=== PATIENT | male | born 1945 | race Caucasian/White ===

== ENCOUNTER → 2018-08-05 | Outpatient (CLI) | payer OTHER ==
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
== END | disposition home or self-care (01) ==
LOC: RADMRIMAIN 12:31
PROVIDERS: ATTEND Nurse Practitioner Family
DX: G31.1 Senile degeneration of brain, not elsewhere classified (principal); I67.82 Cerebral ischemia; S09.90XD Unspecified injury of head, subsequent encounter
CPT/HCPCS: 70551

== ENCOUNTER 2022-05-29 09:34 | Inpatient (IN) | payer MEDICARE ==
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
[2022-05-29] MEDS ORDERED: NITROGLYCERIN SL TABS 0.4 MG TAB SUBLINGUAL PRN (10:01)
[2022-05-29] MEDS ORDERED: IV FLUID CONTINUATION 1,000 ML IV ONE (10:30)
[2022-05-29] MEDS ORDERED: LIDOCAINE 1% INJ 10MG/ML (30 ML VIAL-PF) SQ ONE (11:13)
--- NOTE | 2022-05-29 11:38 | P.EPPROC ---
- EP Procedure Note Electrophysiology Procedure Note: Transvenous temporary pacing procedure Indication for the procedure: Paroxysmal AV block with long pauses associated with presyncope and syncope, recurrent Patient was brought to the EP lab in a fasting state. Written informed consent was obtained prior to the procedure. The right groin was prepped and draped as a protocol. A 6-Azeri sheath was placed in the right femoral vein. Via this, a temporary pacing catheter was placed in the right ventricle. Thresholds were interrogated. Temporary pacing was performed through the rest of the procedure. At the end of the entire procedure, the TVP was removed. The sheath was removed and hemostasis was assured. Patient tolerated the procedure well without any acute complications. Procedure performed Transvenous temporary pacing Plan dual-chamber pacemaker in the next 48 hours
--- NOTE | 2022-05-29 11:38 | P.CRDCN ---
History of Present Illness Consult date: 05/29/22 Past Medical History Past Medical History: Diabetes Mellitus Additional Past Medical History / Comment(s): Cardiac Stent, (1, 8yrs), Heart murmur History of Any Multi-Drug Resistant Organisms: None Reported Past Surgical History: Heart Catheterization With Stent, Hernia Repair Past Psychological History: No Psychological Hx Reported Smoking Status: Current every day smoker Past Alcohol Use History: Occasional Past Drug Use History: None Reported Medications and Allergies Allergies Allergy/AdvReac Type Severity Reaction Status Date / Time meperidine [From Demerol] Allergy Severe Anaphylaxis Verified 05/29/22 10:00 Physical Exam Vitals: Vital Signs Pulse Resp BP Pulse Ox 05/29/22 09:47 86 18 116/93 97 Intake and Output 05/28/22 05/29/22 05/29/22 22:59 06:59 14:59 Other: Weight 64.864 kg Results Intake and Output 05/28/22 05/29/22 05/29/22 22:59 06:59 14:59 Other: Weight 64.864 kg Patient Weight 05/30/22 06:59 Weight 64.864 kg
[2022-05-29 12:04] LABS: Glucose,Whole Blood 190 mg/dL (70-110)
--- NOTE | 2022-05-29 12:51 | P.PCN ---
Preoperative Diagnosis: Patient underwent EP procedure under conscious sedation/moderate sedation, monitoring of the level of consciousness and physiologic parameters including but not limited to vital signs and oxygenation. Patient tolerated the procedure well without any acute complications. Start time: 1113 Stop time: 1129
[2022-05-29] MEDS ORDERED: NALOXONE 0.4 MG/ML 1 ML VIAL IV PRN (13:03)
[2022-05-29] MEDS ORDERED: CALCIUM CARBONATE 500 MG CHEWABLE PO PRN (13:03)
[2022-05-29] MEDS ORDERED: ONDANSETRON 4 MG/2 ML VIAL IVP PRN (13:03)
[2022-05-29] MEDS ORDERED: ALPRAZolam 0.25 MG TAB PO PRN (13:03)
[2022-05-29] MEDS ORDERED: MELATONIN 3 MG TABLET PO PRN (13:03)
[2022-05-29] MEDS ORDERED: ACETAMINOPHEN TAB 325 MG TAB PO PRN (13:03)
[2022-05-29] MEDS ORDERED: LACTULOSE 20 GM/30 ML CUP PO PRN (13:03)
[2022-05-29] MEDS ORDERED: DEXTROSE 50% SYRINGE 50 ML IVP PRN ×2 (13:05)
[2022-05-29] MEDS: NICOTINE 14MG/24HR PATCH TRANSDERM SCH (13:10)
[2022-05-29] MEDS: INSULIN ASPART (NovoLOG) 100 UNIT/ML VIAL SQ SCH ×2 (13:11→17:56)
--- NOTE | 2022-05-29 13:41 | XR ---
EXAMINATION TYPE: XR chest 1V portable DATE OF EXAM: 05/29/2022 COMPARISON: NONE HISTORY: Cough TECHNIQUE: Single frontal view of the chest is obtained. FINDINGS: There is no focal air space opacity, pleural effusion, or pneumothorax seen. The cardiac silhouette size is within normal limits. The osseous structures are intact. Arthropathy of the shou lders. Hyperinflation suggests COPD. Heart size normal. No overt failure. Likely appears to be looped along the lower margin of the cardiac silhouette. IMPRESSION: 1. COPD. Correlate for pulmonary fibrosis or interstitial pneumonitis. There is a metallic lead overl emmanuel the lower heart border . Correlate for positioning.
[2022-05-29 13:50] LABS: Basophils % (A) 0 %; Eosinophils % (A) 0 %; HCT 38.1 % (39.0-53.0); HGB 13.5 gm/dL (13.0-17.5); Lymphocytes # (A) 0.9 k/uL (1.0-4.8); Lymphocytes % (A) 15 %; MCH 37.4 pg (25.0-35.0); MCHC 35.4 g/dL (31.0-37.0); MCV 105.6 fL (80.0-100.0); Macrocytosis Slight; Mean Platelet Volume 8.1; Monocytes # (A) 0.3 k/uL (0-1.0); Monocytes % (A) 4 %; Neutrophils # (A) 4.8 k/uL (1.3-7.7); Neutrophils % (A) 79 %; Platelet Count 173 k/uL (150-450); RDW 12.9 % (11.5-15.5); WBC 6.1 k/uL (3.8-10.6)
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
[2022-05-29 14:04] LABS: ALT 42 U/L (4-49); AST 36 U/L (17-59); African American GFR (CKD) >90 (>60 ml/min/1.73 sqM); Albumin 3.5 g/dL (3.5-5.0); Alkaline Phosphatase 80 U/L (38-126); Anion Gap 7 mmol/L; Blood Urea Nitrogen 20 mg/dL (9-20); Carbon Dioxide 24 mmol/L (22-30); Chloride 108 mmol/L (98-107); Glucose 156 mg/dL (74-99); Magnesium 1.9 mg/dL (1.6-2.3); Non-African American GFR(CKD) >90 (>60 ml/min/1.73 sqM); Potassium 3.8 mmol/L (3.5-5.1); Sodium 139 mmol/L (137-145); Total Bilirubin 0.5 mg/dL (0.2-1.3); Total Protein 5.8 g/dL (6.3-8.2)
[2022-05-29 16:59] LABS: Glucose,Whole Blood 204 mg/dL (70-110)
[2022-05-29] MEDS ORDERED: Potassium Replacement Protocol 1 EACH MISC MISCELLANE PRN (17:20)
[2022-05-29] MEDS ORDERED: Magnesium Replacement Protocol 1 EACH MISC MISCELLANE PRN (17:21)
[2022-05-29] MEDS: POTASSIUM CHLORIDE ER 20 MEQ TAB.ER PO SCH (17:56)
[2022-05-29] MEDS: TAMSULOSIN 0.4 MG CAP.ER.24H PO SCH (17:56)
[2022-05-29] MEDS: MAGNESIUM SULFATE-D5W PMX 1 GM in DEXTROSE/WATER 1 100ML.BAG IVPB SCH ×2 (17:57→19:00)
[2022-05-29 20:28] LABS: Glucose,Whole Blood 231 mg/dL (70-110)
[2022-05-29 21:07] LABS: Magnesium 2.5 mg/dL (1.6-2.3); Potassium 3.7 mmol/L (3.5-5.1)
[2022-05-29] MEDS ORDERED: POTASSIUM CHLORIDE ER 20 MEQ TAB.ER PO SCH (22:00)
[2022-05-30 04:14] LABS: African American GFR (CKD) >90 (>60 ml/min/1.73 sqM); Anion Gap 3 mmol/L; Blood Urea Nitrogen 23 mg/dL (9-20); Calcium 8.1 mg/dL (8.4-10.2); Carbon Dioxide 27 mmol/L (22-30); Chloride 107 mmol/L (98-107); Glucose 181 mg/dL (74-99); Non-African American GFR(CKD) 88 (>60 ml/min/1.73 sqM); Potassium 4.4 mmol/L (3.5-5.1); Sodium 137 mmol/L (137-145)
[2022-05-30 04:45] LABS: Basophils % (A) 0 %; Eosinophils # (A) 0.1 k/uL (0-0.7); Eosinophils % (A) 1 %; HCT 36.9 % (39.0-53.0); HGB 12.7 gm/dL (13.0-17.5); Lymphocytes # (A) 1.4 k/uL (1.0-4.8); Lymphocytes % (A) 22 %; MCH 36.8 pg (25.0-35.0); MCHC 34.3 g/dL (31.0-37.0); MCV 107.4 fL (80.0-100.0); Macrocytosis Moderate; Mean Platelet Volume 8.4; Monocytes # (A) 0.4 k/uL (0-1.0); Monocytes % (A) 6 %; Neutrophils # (A) 4.5 k/uL (1.3-7.7); Neutrophils % (A) 70 %; Platelet Count 175 k/uL (150-450); RBC 3.44 m/uL (4.30-5.90); RDW 13.5 % (11.5-15.5); WBC 6.5 k/uL (3.8-10.6)
[2022-05-30 08:14] LABS: Glucose,Whole Blood 380 mg/dL (70-110)
[2022-05-30] MEDS: NICOTINE 14MG/24HR PATCH TRANSDERM SCH ×2 (08:22→08:32)
[2022-05-30] MEDS: INSULIN ASPART (NovoLOG) 100 UNIT/ML VIAL SQ SCH ×3 (08:31→17:36)
[2022-05-30] MEDS: ASPIRIN 81 MG PO SCH (08:32)
[2022-05-30] MEDS ORDERED: ASPIRIN 325 MG TAB PO SCH (09:00)
[2022-05-30 09:28] LABS: Chol/HDL Ratio 3.44 Ratio; LDL Cholesterol,Calculated 96.4 mg/dL (0.0-131.0)
--- NOTE | 2022-05-30 09:53 | P.PN ---
Subjective Progress Note Date: 05/30/22 The patient is a 77-year-old male who presented to the hospital with syncope. He was found to be in third-degree heart block. He underwent transvenous pacemaker placement yesterday with Dr. Loja. He will undergo dual-chamber pacemaker today. The patient was interviewed and examined. He states he has had dizzy spells on and off for the last several years. He currently denies any dizziness or ligh theadedness. No chest pain or chest pressure. No difficulty breathing. GENERAL: Well-appearing, well-nourished and in no acute distress. NECK: Supple without JVD or thyromegaly. LUNGS: Breath sounds clear to auscultation bilaterally. Respiration equal and unlabored. No wheezes, rales or rhonchi. HEART: Regular rate and rhythm. Soft systolic murmur. No rubs or gallops. S1 and S2 heard. EXTREMITIES: Normal range of motion, no edema. No clubbing or cyanosis. Peripheral pulses intact and strong. VITALS: Blood pressure 102/78, SpO2 90% on room air, pulse 88, respiratory rate 15, afebrile TELEMETRY: Sinus rhythm overnight. TVP in place. LABS: WBC 6.5, hemoglobin 12.7, hematocrit 36.9, platelet 175, sodium 137, potassium 4.4, BUN 23, creatinine 0.77, triglycerides 107, LDL 96, HDL 48 IMPRESSION: Third-degree heart block Mildly prolonged PA interval History of coronary artery disease History of BPH Current smoker PLAN: Proceed with dual-chamber pacemaker implantation Awaiting echocardiogram results Further recommendations. Based upon clinical course I am dictating on behalf of Dr Satya Loja's history/physical and assessment/plan. Objective - Vital Signs Vital signs: Vital Signs Temp 98.3 F 05/30/22 08:00 Pulse 88 05/30/22 08:00 Resp 15 05/30/22 08:00 BP 102/78 05/30/22 08:00 Pulse Ox 92 L 05/30/22 09:30 FiO2 Intake & Output 05/29/22 05/30/22 05/30/22 18:59 06:59 18:59 Intake Total 1720 540 80 Output Total 725 1215 400 Balance 415 -260 -049 Weight 58.786 kg 61.3 kg Intake: IV 240 240 80 .9 20 160 240 80 Invasive Line 3 20 Invasive Line 4 10 Oral 1480 300 Output: Urine 725 1215 400 Other: Voiding Method Urinal # Voids 1 1 - Labs CBC & Chem 7: 05/30/22 03:35 05/30/22 03:35 Labs: Abnormal Lab Results - Last 24 Hours (Table) 05/29/22 05/29/22 05/29/22 Range/Units 10:05 12:02 13:02 RBC (4.30-5.90) m/uL Hgb (13.0-17.5) gm/dL Hct (39.0-53.0) % MCV (80.0-100.0) fL MCH (25.0-35.0) pg Lymphocytes # (1.0-4.8) k/uL Chloride (98-107) mmol/L BUN (9-20) mg/dL Creatinine (0.66-1.25) mg/dL Glucose (74-99) mg/dL POC Glucose (mg/dL) 190 H (70-110) mg/dL Calcium (8.4-10.2) mg/dL Magnesium (1.6-2.3) mg/dL Troponin I 0.763 H* 0.706 H* (0.000-0.034) ng/mL Total Protein (6.3-8.2) g/dL 05/29/22 05/29/22 05/29/22 Range/Units 13:07 13:07 16:00 RBC 3.60 L (4.30-5.90) m/uL Hgb (13.0-17.5) gm/dL Hct 38.1 L (39.0-53.0) % MCV 105.6 H (80.0-100.0) fL MCH 37.4 H (25.0-35.0) pg Lymphocytes # 0.9 L (1.0-4.8) k/uL Chloride 108 H (98-107) mmol/L BUN (9-20) mg/dL Creatinine 0.65 L (0.66-1.25) mg/dL Glucose 156 H (74-99) mg/dL POC Glucose (mg/dL) (70-110) mg/dL Calcium 8.0 L (8.4-10.2) mg/dL Magnesium (1.6-2.3) mg/dL Troponin I 0.848 H* (0.000-0.034) ng/mL Total Protein 5.8 L (6.3-8.2) g/dL 05/29/22 05/29/22 05/29/22 Range/Units 16:57 20:27 20:45 RBC (4.30-5.90) m/uL Hgb (13.0-17.5) gm/dL Hct (39.0-53.0) % MCV (80.0-100.0) fL MCH (25.0-35.0) pg Lymphocytes # (1.0-4.8) k/uL Chloride (98-107) mmol/L BUN (9-20) mg/dL Creatinine (0.66-1.25) mg/dL Glucose (74-99) mg/dL POC Glucose (mg/dL) 204 H 231 H (70-110) mg/dL Calcium (8.4-10.2) mg/dL Magnesium 2.5 H (1.6-2.3) mg/dL Troponin I (0.000-0.034) ng/mL Total Protein (6.3-8.2) g/dL 05/30/22 05/30/22 05/30/22 Range/Units 03:35 03:35 08:13 RBC 3.44 L (4.30-5.90) m/uL Hgb 12.7 L (13.0-17.5) gm/dL Hct 36.9 L (39.0-53.0) % MCV 107.4 H (80.0-100.0) fL MCH 36.8 H (25.0-35.0) pg Lymphocytes # (1.0-4.8) k/uL Chloride (98-107) mmol/L BUN 23 H (9-20) mg/dL Creatinine (0.66-1.25) mg/dL Glucose 181 H (74-99) mg/dL POC Glucose (mg/dL) 380 H (70-110) mg/dL Calcium 8.1 L (8.4-10.2) mg/dL Magnesium (1.6-2.3) mg/dL Troponin I (0.000-0.034) ng/mL Total Protein (6.3-8.2) g/dL
[2022-05-30 11:44] LABS: Glucose,Whole Blood 278 mg/dL (70-110)
[2022-05-30] MEDS: ACETAMINOPHEN TAB 325 MG TAB PO PRN (12:26)
[2022-05-30 16:55] LABS: Glucose,Whole Blood 478 mg/dL (70-110)
--- NOTE | 2022-05-30 17:03 | P.PN ---
Progress Note - Text Progress Note Date: 05/30/22 Chief Complaint: Recurrent syncope This is a pleasant 77-year-old patient who follows with Dr. Almaguer. Chronic stable medical conditions include COPD, diabetes, obstructive sleep apnea, CAD with a history of stent, OA. Last 3 days patient is having episodes of near-syncope and syncope. No chest pain and palpitation. Recurrent. EKG was showing AV block. With long pauses. Auditory was taken to the cardiac botany laboratory assistant and had a temporary venous pacemaker placed.. Patient otherwise comfortable laying in bed. 05/30/2022: ICU. Transvenous pacemaker in place. Bedrest. 4 pacemaker tomorrow. Active Medications Acetaminophen (Acetaminophen Tab 325 Mg Tab) 500 mg PO Q4HR PRN PRN Reason: Mild Pain or Fever > 100.5 Last Admin: 05/30/22 12:26 Dose: 500 mg Alprazolam (Alprazolam 0.25 Mg Tab) 0.25 mg PO Q6HR PRN PRN Reason: Anxiety Aspirin (Aspirin 81 Mg) 81 mg PO DAILY [facility] Last Admin: 05/30/22 08:32 Dose: 81 mg Calcium Carbonate/Glycine (Calcium Carbonate 500 Mg Chewable) 1,000 mg PO Q4HR PRN PRN Reason: Dyspepsia Dextrose/Water (Dextrose 50% Syringe 50 Ml) 25 ml IVP PER PROTOCOL PRN; Protocol PRN Reason: Hypoglycemia Dextrose/Water (Dextrose 50% Syringe 50 Ml) 50 ml IVP PER PROTOCOL PRN; Protocol PRN Reason: Hypoglycemia Cefazolin Sodium 1,000 mg/ (Sodium Chloride) 50 mls @ 100 mls/hr IVPB Q8H [facility]; Protocol Last Admin: 05/30/22 12:26 Dose: 100 mls/hr Insulin Aspart (Insulin Aspart (Novolog) 100 Unit/Ml Vial) 0 unit SQ AC-TID [facility]; Protocol Last Admin: 05/30/22 12:18 Dose: 3 unit Lactulose (Lactulose 20 Gm/30 Ml Cup) 20 gm PO DAILY PRN PRN Reason: Constipation Melatonin (Melatonin 3 Mg Tablet) 3 mg PO HS PRN PRN Reason: Insomnia Miscellaneous Information (Potassium Replacement Protocol 1 Each Misc) 1 each MISCELLANE DAILY PRN; Protocol PRN Reason: Per Protocol Miscellaneous Information (Magnesium Replacement Protocol 1 Each Misc) 1 each MISCELLANE DAILY PRN; Protocol PRN Reason: Per Protocol Naloxone HCl (Naloxone 0.4 Mg/Ml 1 Ml Vial) 0.2 mg IV Q2M PRN PRN Reason: Opioid Reversal Nicotine (Nicotine 14mg/24hr Patch) 1 patch TRANSDERM DAILY [facility] Last Admin: 05/30/22 08:32 Dose: 1 patch Nitroglycerin (Nitroglycerin Sl Tabs 0.4 Mg Tab) 0.4 mg SUBLINGUAL Q5M PRN PRN Reason: Chest Pain Ondansetron HCl (Ondansetron 4 Mg/2 Ml Vial) 4 mg IVP Q8HR PRN PRN Reason: Nausea And Vomiting Tamsulosin HCl (Tamsulosin 0.4 Mg Cap.Er.24h) 0.4 mg PO PC-SUPPER [facility] Last Admin: 05/29/22 17:56 Dose: 0.4 mg Past medical history to include: COPD, diabetes, CAD with stent, obstructive sleep apnea, osteoarthritis Social history: Smokes half a pack a day for close to 60 years. Lives alone. 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 Physical examination: VITAL SIGNS: 98.3, 62, 15, 90/53, 96% GENERAL: laying in bed awake, comfortable. JVP in place EYES: Pupils equal. Conjunctiva normal. HEENT: External appearance of nose and ears normal, oral cavity grossly normal. NECK: JVD not raised; masses not palpable. HEART: First and second heart sounds are normal; no edema. LUNGS: Respiratory rate normal; diminished breath sounds. ABDOMEN: Soft, nontender, liver spleen not palpable, no masses palpable. PSYCH: Alert and oriented x3; mood and affect normal. MUSCULOSKELETAL:No Clubbing/cyanosis;muscles-grossly intact. 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 Patient passing out and near-syncope. has a temporary venous pacemaker. [address] Satya Mckeon -CAD with a prior history of stent Aspirin -COPD in a current smoker Albuterol when necessary -Chronic nicotine dependence, cigarette smoker Nicotine patch 14 -Diabetes mellitus type 2 Accu-Cheks with sliding scale -BPH Flomax 0.4 mg after meals supper -Primary osteoarthritis multiple joints bilaterally Tylenol as needed And Levemir 15 units at night. Other medications to continue. For pacemaker tomorrow.
--- NOTE | 2022-05-30 17:28 | CA ---
Transthoracic Echo Report Name: Kenton Diaz Age: 77 Gender: M : 1945 Exam Date: 05/30/2022 11:32 Exam Location: [facility] Ht (in): 70 Wt (lb): 135 Ordering Physician: Daisy Ludwig Attending/Referring Phys: [id number], Vani Certified Shorthand Reporter Milena Sanon RDCS Procedure CPT: Indications: LVF Cardiac Hx: Technical Quality: Fair Contrast 1: Total Dose (mL): Contrast 2: Total Dose (mL): MEASUREMENTS (Male / Female) Normal Values 2D ECHO LV Diastolic Diameter PLAX 5.8 cm 4.2 - 5.9 / 3.9 - 5.3 cm LV Systolic Diameter PLAX 4.8 cm IVS Diastolic Thickness 1.1 cm 0.6 - 1.0 / 0.6 - 0.9 cm LVPW Diastolic Thickness 1.0 cm 0.6 - 1.0 / 0.6 - 0.9 cm LV Relative Wall Thickness 0.4 LA Volume 47.0 cm??? 18 - 58 / 22 - 52 cm??? DOPPLER AV Peak Velocity 335.6 cm/s AV Peak Gradient 45.1 mmHg AV Mean Velocity 247.0 cm/s AV Mean Gradient 27.6 mmHg AV Velocity Time Integral 85.8 cm LVOT Peak Velocity 49.6 cm/s LVOT Peak Gradient 1.0 mmHg FINDINGS Left Ventricle Mildly increased septal wall thickness. Moderate left ventricular dilatation. Severely reduced global left ventricular systolic function. Left ventricular ejection fraction is estimated at < 20 %. Right Ventricle Normal right ventricular size. Right Atrium Normal right atrial size. Left Atrium Normal left atrial size. Mitral Valve Moderate mitral annular calcification. Mild mitral regurgitation. Aortic Valve Moderate to severe aortic stenosis with a peak gradient of 45 mmHg and a mean gradient of 28 mmHg. Likely severe aortic stenosis with dimensionless index 0.14 with low-flow low gradient. Recommend low-level dobutamine stress echo or ELIZA if clinical concern of severe aortic stenosis. Tricuspid Valve Structurally normal tricuspid valve. Mild tricuspid regurgitation. Pulmonic Valve Trace pulmonic regurgitation. Pericardium No pericardial effusion. Aorta Normal size aortic root and proximal ascending aorta. CONCLUSIONS Moderate left ventricular dilation Severe cardiomyopathy left ventricular ejection fraction less than 20% Moderate mitral annular calcification Mild mitral regurgitation likely severe aortic stenosis with dimensionless index 0.14 with low-flow low gradient. Recommend low-level dobutamine stress echo or ELIZA if clinical concern of severe aortic stenosis. Previewed by: Dr. Destin Lewis DO (Electronically Signed) Final Date: 30 May 2022 17:27
[2022-05-30] MEDS ORDERED: DEXTROSE 50% SYRINGE 50 ML IVP PRN ×2 (17:38)
[2022-05-30 18:21] LABS: Glucose,Whole Blood 407 mg/dL (70-110)
[2022-05-30] MEDS: INSULIN REGULAR 100 UNIT in SODIUM CHLORIDE 0.9% 100 ML IV SCH (18:22)
[2022-05-30] MEDS: TAMSULOSIN 0.4 MG CAP.ER.24H PO SCH (18:24)
[2022-05-30 19:29] LABS: Glucose,Whole Blood 135 mg/dL (70-110)
[2022-05-30 20:04] LABS: Glucose,Whole Blood 171 mg/dL (70-110)
[2022-05-30] MEDS ORDERED: INSULIN DETEMIR (LEVEMIR) 100 UNIT/ML SYR SQ SCH (21:00)
[2022-05-30 21:47] LABS: Glucose,Whole Blood 135 mg/dL (70-110)
[2022-05-31 00:41] LABS: Glucose,Whole Blood 200 mg/dL (70-110)
[2022-05-31] MEDS: INSULIN REGULAR 100 UNIT in SODIUM CHLORIDE 0.9% 100 ML IV SCH (00:43)
[2022-05-31 02:05] LABS: Glucose,Whole Blood 166 mg/dL (70-110)
[2022-05-31] MEDS: ACETAMINOPHEN TAB 325 MG TAB PO PRN (03:03)
[2022-05-31 03:08] LABS: Glucose,Whole Blood 122 mg/dL (70-110)
[2022-05-31 04:25] LABS: HCT 34.7 % (39.0-53.0); HGB 11.9 gm/dL (13.0-17.5); MCH 36.9 pg (25.0-35.0); MCHC 34.4 g/dL (31.0-37.0); MCV 107.4 fL (80.0-100.0); Macrocytosis Moderate; Mean Platelet Volume 8.5; Platelet Count 150 k/uL (150-450); RBC 3.23 m/uL (4.30-5.90); RDW 13.4 % (11.5-15.5); WBC 6.4 k/uL (3.8-10.6)
[2022-05-31 05:14] LABS: ALT 27 U/L (4-49); AST 25 U/L (17-59); African American GFR (CKD) >90 (>60 ml/min/1.73 sqM); Albumin 3.2 g/dL (3.5-5.0); Alkaline Phosphatase 78 U/L (38-126); Anion Gap 3 mmol/L; Blood Urea Nitrogen 19 mg/dL (9-20); Calcium 8.3 mg/dL (8.4-10.2); Carbon Dioxide 28 mmol/L (22-30); Chloride 105 mmol/L (98-107); Glucose 116 mg/dL (74-99); Magnesium 1.6 mg/dL (1.6-2.3); Non-African American GFR(CKD) 87 (>60 ml/min/1.73 sqM); Potassium 3.9 mmol/L (3.5-5.1); Sodium 136 mmol/L (137-145); Total Bilirubin 0.3 mg/dL (0.2-1.3); Total Protein 5.6 g/dL (6.3-8.2)
[2022-05-31 06:38] LABS: Glucose,Whole Blood 170 mg/dL (70-110)
[2022-05-31] MEDS: MAGNESIUM SULFATE-D5W PMX 1 GM in DEXTROSE/WATER 1 100ML.BAG IVPB SCH ×2 (07:00→08:38)
[2022-05-31] MEDS ORDERED: ACETAMINOPHEN TAB 500 MG TAB PO PRN (08:31)
[2022-05-31] MEDS: ASPIRIN 81 MG PO SCH (08:38)
[2022-05-31] MEDS: NICOTINE 14MG/24HR PATCH TRANSDERM SCH (08:38)
[2022-05-31 08:40] LABS: Glucose,Whole Blood 162 mg/dL (70-110)
[2022-05-31] MEDS ORDERED: IV FLUID CONTINUATION 500 ML IV ONE (11:17)
[2022-05-31] MEDS ORDERED: SODIUM CHLORIDE 0.9% 500 ML 500 ML IV ONE (11:20)
[2022-05-31] MEDS ORDERED: IOPAMIDOL-370 50ML BTL INJ ONE (11:32)
[2022-05-31] MEDS: ceFAZolin 1,000 MG in SODIUM CHLORIDE 0.9% IRRIG BTL 250 ML IRRIGATION ONE ×2 (11:58→12:28)
[2022-05-31] MEDS ORDERED: fentaNYL (PF) 50 MCG/ML 2 ML AMP ONE (12:20)
[2022-05-31] MEDS ORDERED: LIDOCAINE 1% INJ 10MG/ML (30 ML VIAL-PF) SQ ONE (12:34)
[2022-05-31] MEDS ORDERED: fentaNYL (PF) 50 MCG/1 ML VIAL IV ONE (12:34)
[2022-05-31] MEDS ORDERED: MIDAZOLAM 2 MG/2 ML VIAL IV ONE (12:34)
[2022-05-31] MEDS ORDERED: ATROPINE SULFATE 0.1 MG/ML 10ML SYRINGE IVP ONE (13:24)
[2022-05-31] MEDS ORDERED: ACETAMINOPHEN IV (For NPO) 1,000 MG in EMPTY BAG 1 BAG IVPB ONE (14:03)
[2022-05-31] MEDS ORDERED: ACETAMINOPHEN TAB 325 MG TAB PO PRN (14:03)
[2022-05-31] MEDS ORDERED: VANCOMYCIN 1,000 MG in SODIUM CHLORIDE 0.9% 250 ML IVPB ONE (14:04)
--- NOTE | 2022-05-31 14:14 | P.EPPROC ---
- EP Procedure Note Electrophysiology Procedure Note: Diagnosis Symptomatic bradycardia secondary to third degree heart block, intermittent associated this syncope Recurrent syncopal spells Procedure Dual-chamber pacemaker implantation Increase procedures services TVP removal and deployment of Vascade closure device Conscious sedation Details Patient was brought to the EP lab in a fasting state. Written informed consent was obtained prior to the procedure. Conscious sedation provided. IV antibiotics administered. Local anesthesia administered. A 4 cm incision made in the pectoral area. Subfascial pocket made. Venous accesses obtained Venous sheaths placed. Leads placed in the right heart The patient had a TVP but during RV lead positioning the TVP would dislodge. Patient had underlying heart block the atrial lead was positioned in the RV without deployment of the screw. Backup pacing is provided during the procedure. The atrial lead The RV lead was positioned in the septum and screwed and successfully Thereafter the atrial lead was withdrawn from the right ventricle and positioned in the right atrial appendage 2 attempts were made with the atrial lead and the final position was very secured with excellent thresholds and sensing IV atropine had to be used during the procedure Atrial lead position the right atrial appendage. P waves 3.8 mV, pacing threshold 1 warted 0.4 ms pacing impedance 630 ohms RV lead position in the RV septum screw-in lead, tendril model #2088 TC, [employer] 50s centimeters in length Pacing threshold 0.75 V at 0.4 ms R waves 10 mV and pacing impedance 810 ohms 10 V test negative Device environmental designer [employer], [employer]UR[employer] MRI model #2272 pacemaker Dual-chamber pacemaker device connected to the leads and placed in the subfascial pocket Patient tolerated the procedure well without acute complications Pacemaker programming DDD 50-110 Patient underwent EP procedure under conscious sedation/moderate sedation, monitoring of the level of consciousness and physiologic parameters including but not limited to vital signs and oxygenation. Patient tolerated the procedure well without any acute complications. Start time: 1232 Stop time: 1351 TVP was removed under fluoroscopy Leads remained stable Vascade closure was employed successfully
[2022-05-31 14:16] LABS: Glucose,Whole Blood 151 mg/dL (70-110)
--- NOTE | 2022-05-31 15:24 | XR ---
EXAMINATION TYPE: XR chest 1V portable DATE OF EXAM: 05/31/2022 COMPARISON: NONE HISTORY: Lead placement TECHNIQUE: Single view FINDINGS: Heart size is normal. There is some mild pulmonary interstitial edema. There is left axilla ry pacemaker. No pleural effusion. The bony thorax is intact. There are chest leads. IMPRESSION: There is some mild pulmonary interstitial edema that appears new compared to the old exam and could be mild acute heart failure or acute interstitial pneumonia.
[2022-05-31] MEDS ORDERED: DEXTROSE 50% SYRINGE 50 ML IVP PRN ×2 (15:30)
--- NOTE | 2022-05-31 16:27 | P.PN ---
Progress Note - Text Progress Note Date: 05/31/22 Chief Complaint: Recurrent syncope This is a pleasant 77-year-old patient who follows with Dr. Almaguer. Chronic stable medical conditions include COPD, diabetes, obstructive sleep apnea, CAD with a history of stent, OA. Last 3 days patient is having episodes of near-syncope and syncope. No chest pain and palpitation. Recurrent. EKG was showing AV block. With long pauses. Auditory was taken to the cardiac cytogenetics laboratory manager and had a temporary venous pacemaker placed.. Patient otherwise comfortable laying in bed. 05/30/2022: ICU. Transvenous pacemaker in place. Bedrest. 4 pacemaker tomorrow. 05/31/2022: ICU. Patient had a dual-chamber pacemaker placed today. Sitting up. Comfortable. No new symptoms. Active Medications Acetaminophen (Acetaminophen Tab 325 Mg Tab) 650 mg PO Q6HR PRN PRN Reason: Mild Pain (Scale 1 to 3) Alprazolam (Alprazolam 0.25 Mg Tab) 0.25 mg PO Q6HR PRN PRN Reason: Anxiety Aspirin (Aspirin 81 Mg) 81 mg PO DAILY [facility] Last Admin: 05/31/22 08:38 Dose: 81 mg Calcium Carbonate/Glycine (Calcium Carbonate 500 Mg Chewable) 1,000 mg PO Q4HR PRN PRN Reason: Dyspepsia Dextrose/Water (Dextrose 50% Syringe 50 Ml) 25 ml IVP PER PROTOCOL PRN; Protocol PRN Reason: Hypoglycemia Dextrose/Water (Dextrose 50% Syringe 50 Ml) 50 ml IVP PER PROTOCOL PRN; Protocol PRN Reason: Hypoglycemia Cefazolin Sodium 2 gm/ Sodium (Chloride) 50 mls @ 100 mls/hr IVPB Q6HR [facility]; Protocol Stop: 06/01/22 06:29 Cefazolin Sodium 1,000 mg/ (Sodium Chloride) 50 mls @ 100 mls/hr IVPB Q8H [facility]; Protocol Insulin Aspart (Insulin Aspart (Novolog) 100 Unit/Ml Vial) 0 unit SQ ACHS [facility]; Protocol Lactulose (Lactulose 20 Gm/30 Ml Cup) 20 gm PO DAILY PRN PRN Reason: Constipation Melatonin (Melatonin 3 Mg Tablet) 3 mg PO HS PRN PRN Reason: Insomnia Miscellaneous Information (Potassium Replacement Protocol 1 Each Misc) 1 each MISCELLANE DAILY PRN; Protocol PRN Reason: Per Protocol Miscellaneous Information (Magnesium Replacement Protocol 1 Each Misc) 1 each MISCELLANE DAILY PRN; Protocol PRN Reason: Per Protocol Naloxone HCl (Naloxone 0.4 Mg/Ml 1 Ml Vial) 0.2 mg IV Q2M PRN PRN Reason: Opioid Reversal Nicotine (Nicotine 14mg/24hr Patch) 1 patch TRANSDERM DAILY [facility] Last Admin: 05/31/22 08:38 Dose: 1 patch Nitroglycerin (Nitroglycerin Sl Tabs 0.4 Mg Tab) 0.4 mg SUBLINGUAL Q5M PRN PRN Reason: Chest Pain Ondansetron HCl (Ondansetron 4 Mg/2 Ml Vial) 4 mg IVP Q8HR PRN PRN Reason: Nausea And Vomiting Sodium Chloride (Sodium Chloride 0.9% Flush 10 Ml Syringe) 10 ml IV Q12HR [facility] Tamsulosin HCl (Tamsulosin 0.4 Mg Cap.Er.24h) 0.4 mg PO PC-SUPPER [facility] Last Admin: 05/30/22 18:24 Dose: 0.4 mg Past medical history to include: COPD, diabetes, CAD with stent, obstructive sleep apnea, osteoarthritis Social history: Smokes half a pack a day for close to 60 years. Lives alone. 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 Physical examination: VITAL SIGNS: 97.6, 75, 14, 86/56, 96% GENERAL: Sitting up in bed, left arm wrestling, comfortable. Dressing over the pacemaker EYES: Pupils equal. Conjunctiva normal. HEENT: External appearance of nose and ears normal, oral cavity grossly normal. NECK: JVD not raised; masses not palpable. HEART: First and second heart sounds are normal; no edema. LUNGS: Respiratory rate normal; diminished breath sounds. ABDOMEN: Soft, nontender, liver spleen not palpable, no masses palpable. PSYCH: Alert and oriented x3; mood and affect normal. MUSCULOSKELETAL:No Clubbing/cyanosis;muscles-grossly intact. Evidence of severe OA especially in the hands INVESTIGATIONS, reviewed in the clinical context: 05/31/2022: White count 6.4 hemoglobin 11.9 potassium 3.9 creatinine 0.78 05/30/2022: White count 6.5 hemoglobin 12.7 platelets 135 potassium 4.4 creatinine 0.77 Chest x-ray film personally reviewed by me-hyperinflation EKG tracing personally reviewed by me-AV block Troponin I 0.763 Assessment and plan: -Intermittent third-degree AV block with episodes of pauses symptomatic. Patient passing out and near-syncope. At her transvenous pacemaker.. 05/31/2022 had a permanent sheri make her dual- chamber paced but Dr. Satya Loja -CAD with a prior history of stent Aspirin -COPD in a current smoker Albuterol when necessary -Chronic nicotine dependence, cigarette smoker Nicotine patch 14 -Diabetes mellitus type 2 Accu-Cheks with sliding scale -BPH Flomax 0.4 mg after meals supper -Primary osteoarthritis multiple joints bilaterally Tylenol as needed Continue current medication treatment plan. On IV Ancef prophylactically.
[2022-05-31 17:59] LABS: Glucose,Whole Blood 225 mg/dL (70-110)
[2022-05-31] MEDS: INSULIN ASPART (NovoLOG) 100 UNIT/ML VIAL SQ SCH ×2 (18:04→21:00)
[2022-05-31] MEDS: TAMSULOSIN 0.4 MG CAP.ER.24H PO SCH (18:09)
[2022-05-31 21:00] LABS: Glucose,Whole Blood 222 mg/dL (70-110)
[2022-06-01 04:30] VITALS: RESP 18
[2022-06-01 06:11] LABS: Basophils % (A) 0 %; Eosinophils # (A) 0.1 k/uL (0-0.7); Eosinophils % (A) 1 %; HCT 38.5 % (39.0-53.0); HGB 13.4 gm/dL (13.0-17.5); Lymphocytes # (A) 1.2 k/uL (1.0-4.8); Lymphocytes % (A) 20 %; MCH 37.1 pg (25.0-35.0); MCHC 34.7 g/dL (31.0-37.0); MCV 106.9 fL (80.0-100.0); Macrocytosis Moderate; Mean Platelet Volume 8.1; Monocytes # (A) 0.3 k/uL (0-1.0); Monocytes % (A) 6 %; Neutrophils # (A) 4.3 k/uL (1.3-7.7); Neutrophils % (A) 71 %; Platelet Count 172 k/uL (150-450); RDW 12.8 % (11.5-15.5)
[2022-06-01 06:25] LABS: ALT 26 U/L (4-49); AST 27 U/L (17-59); African American GFR (CKD) >90 (>60 ml/min/1.73 sqM); Albumin 3.3 g/dL (3.5-5.0); Alkaline Phosphatase 84 U/L (38-126); Anion Gap 4 mmol/L; Blood Urea Nitrogen 17 mg/dL (9-20); Calcium 8.2 mg/dL (8.4-10.2); Carbon Dioxide 27 mmol/L (22-30); Chloride 105 mmol/L (98-107); Glucose 136 mg/dL (74-99); Magnesium 1.6 mg/dL (1.6-2.3); Non-African American GFR(CKD) 88 (>60 ml/min/1.73 sqM); Sodium 136 mmol/L (137-145); Total Bilirubin 0.4 mg/dL (0.2-1.3); Total Protein 5.7 g/dL (6.3-8.2)
[2022-06-01 07:14] LABS: Glucose,Whole Blood 173 mg/dL (70-110)
[2022-06-01] MEDS: ASPIRIN 81 MG PO SCH (09:29)
[2022-06-01] MEDS: NICOTINE 14MG/24HR PATCH TRANSDERM SCH (09:29)
[2022-06-01] MEDS: INSULIN ASPART (NovoLOG) 100 UNIT/ML VIAL SQ SCH (09:30)
[2022-06-01 09:35] VITALS: TEMP 97.6
[2022-06-01 11:30] LABS: Glucose,Whole Blood 196 mg/dL (70-110)
--- NOTE | 2022-06-01 12:22 | P.PN ---
Subjective Progress Note Date: 06/01/22 The patient is a 77-year-old male who presented to the hospital with syncope. He was found to be in third-degree heart block. The patient underwent dual- chamber pacemaker implantation on 05/31/[address] Loja. The patient tolerated the procedure well and had no complications. The device was recently interrogated. The patient was interviewed and examined. He states he did well overnight. He denies any chest pain or chest pressure. No dyspnea or orthopnea. No dizziness or lightheadedness when ambulating around the room. GENERAL: Well-appearing, well-nourished and in no acute distress. NECK: Supple without JVD or thyromegaly. LUNGS: Breath sounds clear to auscultation bilaterally. Respiration equal and unlabored. No wheezes, rales or rhonchi. HEART: Regular rate and rhythm. Soft systolic murmur. No rubs or gallops. S1 and S2 heard. Pacemaker dressing clean, dry, and intact. No shadowing EXTREMITIES: Normal range of motion, no edema. No clubbing or cyanosis. Peripheral pulses intact and strong. VITALS: Blood pressure 100/69, pulse 85, respiratory rate 18, temp 97.6F, SpO2 97% on room air TELEMETRY: Sinus rhythm and paced beats LABS: WBC 6.5, hemoglobin 12.7, hematocrit 36.9, platelet 175, sodium 137, potassium 4.4, BUN 23, creatinine 0.77, triglycerides 107, LDL 96, HDL 48 IMPRESSION: Third-degree heart block Mildly prolonged OH interval History of coronary artery disease History of BPH Current smoker PLAN: Continue current medication regimen Patient to be discharged today Outpatient followup with primary 1st pressman, Dr Cavanaugh, in 1 week I am dictating on behalf of Dr Satya Loja's history/physical and assessment/plan. Objective - Vital Signs Vital signs: Vital Signs Temp 97.6 F 06/01/22 08:00 Pulse 85 06/01/22 08:00 Resp 18 06/01/22 08:00 BP 100/69 06/01/22 08:00 Pulse Ox 97 06/01/22 08:00 FiO2 Intake & Output 05/31/22 06/01/22 06/01/22 18:59 06:59 18:59 Intake Total 1360 10 Output Total 1015 200 500 Balance 345 -190 -500 Weight 61 kg Intake: IV 1110 10 .9 20 60 10 Vancomycin 1,000 mg In 250 Sodium Chloride 0.9% 250 ml @ 125 mls/hr IVPB ONCE ONE Rx#:[id number] ceFAZolin 1,000 mg In 250 Sodium Chloride 0.9% 50 ml @ 100 mls/hr IVPB Q8H [facility] Rx#:[id number] Oral 250 Output: Urine 1015 200 500 Other: Voiding Method Urinal Urinal Urinal - Labs CBC & Chem 7: 06/01/22 05:34 06/01/22 05:34 Labs: Abnormal Lab Results - Last 24 Hours (Table) 05/31/22 05/31/22 05/31/22 Range/Units 14:15 17:58 20:58 RBC (4.30-5.90) m/uL Hct (39.0-53.0) % MCV (80.0-100.0) fL MCH (25.0-35.0) pg Sodium (137-145) mmol/L Glucose (74-99) mg/dL POC Glucose (mg/dL) 151 H 225 H 222 H (70-110) mg/dL Calcium (8.4-10.2) mg/dL Total Protein (6.3-8.2) g/dL Albumin (3.5-5.0) g/dL 06/01/22 06/01/22 06/01/22 Range/Units 05:34 05:34 07:12 RBC 3.60 L (4.30-5.90) m/uL Hct 38.5 L (39.0-53.0) % MCV 106.9 H (80.0-100.0) fL MCH 37.1 H (25.0-35.0) pg Sodium 136 L (137-145) mmol/L Glucose 136 H (74-99) mg/dL POC Glucose (mg/dL) 173 H (70-110) mg/dL Calcium 8.2 L (8.4-10.2) mg/dL Total Protein 5.7 L (6.3-8.2) g/dL Albumin 3.3 L (3.5-5.0) g/dL 06/01/22 Range/Units 11:29 RBC (4.30-5.90) m/uL Hct (39.0-53.0) % MCV (80.0-100.0) fL MCH (25.0-35.0) pg Sodium (137-145) mmol/L Glucose (74-99) mg/dL POC Glucose (mg/dL) 196 H (70-110) mg/dL Calcium (8.4-10.2) mg/dL Total Protein (6.3-8.2) g/dL Albumin (3.5-5.0) g/dL
[2022-06-01 14:26] VITALS: BP 116/67; PULSE 80
--- NOTE | 2022-06-01 19:29 | P.DS ---
Providers Date of admission: 05/29/22 10:04 Expected date of discharge: 06/01/22 Attending physician: Zia Looney Consults: 05/29/22 10:01 Consult Physician Urgent Consulting Provider: [facility] Consult Reason/Comments: Ventricular asystole, syncope Do you want consulting provider notified?: Yes Primary care physician: [facility] Course: Chief Complaint: Recurrent syncope This is a pleasant 77-year-old patient who follows with Dr. Almaguer. Chronic stable medical conditions include COPD, diabetes, obstructive sleep apnea, CAD with a history of stent, OA. Last 3 days patient is having episodes of near- syncope and syncope. No chest pain and palpitation. Recurrent. EKG was showing AV block. With long pauses. Auditory was taken to the cardiac slab puller and had a temporary venous pacemaker placed.. Patient otherwise comfortable laying in bed. 05/30/2022: ICU. Transvenous pacemaker in place. Bedrest. 4 pacemaker to ornelas. 05/31/2022: ICU. Patient had a dual-chamber pacemaker placed today. Sitting up. Comfortable. No new symptoms. 06/01/2022: Comfortable. Eating well. Care was discussed with the patient. Questions answered. Follow-up with cardiology. Past medical history to include: COPD, diabetes, CAD with stent, obstructive sleep apnea, osteoarthritis Social history: Smokes half a pack a day for close to 60 years. Lives alone. 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 Physical examination: VITAL SIGNS: 97.6, 80, 18, 160/67, 96% room air GENERAL: Propped up in bed, eating lunch EYES: Pupils equal. Conjunctiva normal. HEENT: External appearance of nose and ears normal, oral cavity grossly normal. NECK: JVD not raised; masses not palpable. HEART: First and second heart sounds are normal; no edema. LUNGS: Respiratory rate normal; diminished breath sounds. ABDOMEN: Soft, nontender, liver spleen not palpable, no masses palpable. PSYCH: Alert and oriented x3; mood and affect normal. MUSCULOSKELETAL:No Clubbing/cyanosis;muscles-grossly intact. Evidence of severe OA especially in the hands INVESTIGATIONS, reviewed in the clinical context: 06/01/2022: WBC 6 hemoglobin 13.4 potassium 4 creatinine 0.76 05/31/2022: White count 6.4 hemoglobin 11.9 potassium 3.9 creatinine 0.78 05/30/2022: White count 6.5 hemoglobin 12.7 platelets 135 potassium 4.4 creatinine 0.77 Chest x-ray film personally reviewed by me-hyperinflation EKG tracing personally reviewed by me-AV block Troponin I 0.763 Assessment and plan: -Intermittent third-degree AV block with episodes of pauses symptomatic. Patient passing out and near-syncope. Had transvenous pacemaker.. 05/31/2022 had a permanent pacemaker dual-chamber paced but Dr. Satya Loja -CAD with a prior history of stent Aspirin -COPD in a current smoker Albuterol when necessary -Chronic nicotine dependence, cigarette smoker Nicotine patch 14 -Diabetes mellitus type 2 Accu-Cheks with sliding scale -BPH Flomax 0.4 mg after meals supper -Primary osteoarthritis multiple joints bilaterally Tylenol as needed Disposition: Home Plan - Discharge Summary Discharge Rx Participant: No New Discharge Prescriptions: New Tamsulosin [Flomax] 0.4 mg PO PC-SUPPER #30 cap Continue Nicotine Polacrilex [Nicotine Gum] 4 mg PO DAILY PRN PRN Reason: cravings Multivitamins, Thera [Multivitamin (formulary)] 1 tab PO DAILY Cholecalciferol [Vitamin D3 (25 Mcg = 1000 Iu)] 50 mcg PO DAILY Aspirin 81 mg PO DAILY Ipratropium/Albuter 20-100Mcg [Combivent Respimat 20-100Mcg Inhaler] 1 puff INHALATION RT-QID Nicotine 14Mg/24Hr Patch [Habitrol] 1 patch TOPICAL DAILY Areds2 1 cap PO BID Folic Acid 1 mg PO DAILY Dextrose Chew [Glucose Chew Tab] 16 gm PO DAILY PRN PRN Reason: low blood sugar Empagliflozin [Jardiance] 25 mg PO DAILY Ascorbic Acid [Vitamin C with Cielo Hips] 500 mg PO DAILY Ammonium Lactate Lotion [Lac-Hydrin 12% Lotion] 1 applic TOPICAL DAILY Simvastatin [Zocor] 10 mg PO DAILY Changed metFORMIN HCL 1,000 mg PO PC-BID #0 Discharge Medication List Ammonium Lactate Lotion [Lac-Hydrin 12% Lotion] 1 applic TOPICAL DAILY 05/29/22 [History] Areds2 1 cap PO BID 05/29/22 [History] Ascorbic Acid [Vitamin C with Cielo Hips] 500 mg PO DAILY 05/29/22 [History] Aspirin 81 mg PO DAILY 05/29/22 [History] Cholecalciferol [Vitamin D3 (25 Mcg = 1000 Iu)] 50 mcg PO DAILY 05/29/22 [History] Dextrose Chew [Glucose Chew Tab] 16 gm PO DAILY PRN 05/29/22 [History] Empagliflozin [Jardiance] 25 mg PO DAILY 05/29/22 [History] Folic Acid 1 mg PO DAILY 05/29/22 [History] Ipratropium/Albuter 20-100Mcg [Combivent Respimat 20-100Mcg Inhaler] 1 puff INHALATION RT-QID 05/29/22 [History] Multivitamins, Thera [Multivitamin (formulary)] 1 tab PO DAILY 05/29/22 [History] Nicotine 14Mg/24Hr Patch [Habitrol] 1 patch TOPICAL DAILY 05/29/22 [History] Nicotine Polacrilex [Nicotine Gum] 4 mg PO DAILY PRN 05/29/22 [History] Simvastatin [Zocor] 10 mg PO DAILY 05/29/22 [History] Tamsulosin [Flomax] 0.4 mg PO PC-SUPPER #30 cap 06/01/22 [Rx] metFORMIN HCL 1,000 mg PO PC-BID #0 06/01/22 [Rx] Follow up Appointment(s)/Referral(s): Satya Loja MD [STAFF PHYSICIAN] - As Needed (Device clinic follow-up in one week) Sae Almaguer MD [Primary Care Provider] - 1-2 days Saeed Cavanaugh MD [STAFF PHYSICIAN] - 1 Week Patient Instructions/Handouts: Pacemaker (DC) Discharge Disposition: HOME SELF-CARE
[2022-06-02] MEDS ORDERED: metFORMIN 500 MG TAB PO SCH (17:30)
== END 2022-06-01 14:00 | disposition home or self-care (01) | DRG 243 ==
LOC: EC 09:34 → 2SICU 10:04
PROVIDERS: ADMIT Hospitalist; ATTEND Hospitalist
PROC: 02HK3JZ Insertion of Pacemaker Lead into Right Ventricle, Percutaneous Approach (ICD-10-PCS; principal; 2022-05-29 16:15)
PROC: 5A1223Z Performance of Cardiac Pacing, Continuous (ICD-10-PCS; principal; 2022-05-29 16:15)
PROC: 0JH606Z Insertion of Pacemaker, Dual Chamber into Chest Subcutaneous Tissue and Fascia, Open Approach (ICD-10-PCS; 2022-05-31)
PROC: 02H63JZ Insertion of Pacemaker Lead into Right Atrium, Percutaneous Approach (ICD-10-PCS; 2022-05-31)
PROC: 02HK3JZ Insertion of Pacemaker Lead into Right Ventricle, Percutaneous Approach (ICD-10-PCS; 2022-05-31)
DX: I44.2 Atrioventricular block, complete (principal); I42.9 Cardiomyopathy, unspecified; I25.10 Atherosclerotic heart disease of native coronary artery without angina pectoris; E11.9 Type 2 diabetes mellitus without complications; N40.0 Benign prostatic hyperplasia without lower urinary tract symptoms; I35.0 Nonrheumatic aortic (valve) stenosis; I51.7 Cardiomegaly; M15.9 Polyosteoarthritis, unspecified; J44.9 Chronic obstructive pulmonary disease, unspecified; G47.33 Obstructive sleep apnea (adult) (pediatric); F17.210 Nicotine dependence, cigarettes, uncomplicated; Z28.310 Unvaccinated for COVID-19; Z95.5 Presence of coronary angioplasty implant and graft; Z79.82 Long term (current) use of aspirin; Z88.5 Allergy status to narcotic agent
CPT/HCPCS: 33208; 71045; 80048; 80053; 80061; 83036; 83735; 84132; 84484; 85025; 85027; 93005; 93306; 99291

== ENCOUNTER 2022-06-11 23:25 | Inpatient (IN) | payer MEDICARE ==
[2022-06-11 23:32] VITALS: TEMP 98.6
[2022-06-11] MEDS ORDERED: SODIUM CHLORIDE 0.9% 1,000 ML IV STA (23:39)
[2022-06-11] MEDS ORDERED: NITROGLYCERIN SL TABS 0.4 MG TAB SUBLINGUAL PRN (23:39)
[2022-06-11] MEDS ORDERED: HEPARIN SODIUM 1,000 UN/ML (10ML VL) IV ONE (23:39)
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
[2022-06-11] MEDS ORDERED: HEPARIN SOD,PORK IN 0.45% NACL 25,000 UNIT in 0.45% NACL 1 250ML.BAG IV SCH (23:45)
[2022-06-11 23:46] LABS: Basophils % (A) 0 %; Eosinophils % (A) 0 %; HCT 38.4 % (39.0-53.0); HGB 12.9 gm/dL (13.0-17.5); Lymphocytes # (A) 0.9 k/uL (1.0-4.8); Lymphocytes % (A) 8 %; MCH 35.6 pg (25.0-35.0); MCHC 33.6 g/dL (31.0-37.0); Macrocytosis Moderate; Mean Platelet Volume 7.7; Monocytes # (A) 0.3 k/uL (0-1.0); Monocytes % (A) 3 %; Neutrophils # (A) 9.1 k/uL (1.3-7.7); Neutrophils % (A) 88 %; Platelet Count 172 k/uL (150-450); RBC 3.62 m/uL (4.30-5.90); RDW 13.1 % (11.5-15.5); WBC 10.4 k/uL (3.8-10.6)
[2022-06-11 23:58] LABS: Albumin 3.8 g/dL (3.5-5.0); Calcium 8.7 mg/dL (8.4-10.2); Partial Thromboplastin Time 23.7 sec (22.0-30.0); Potassium 5.3 mmol/L (3.5-5.1); Prothrombin Time 10.6 sec (9.0-12.0); Total Bilirubin 0.7 mg/dL (0.2-1.3); Total Protein 6.2 g/dL (6.3-8.2)
[2022-06-12] VITALS: BP 113/84; PULSE 118; RESP 16
--- NOTE | 2022-06-12 00:01 | XR ---
EXAMINATION TYPE: XR chest 1V portable DATE OF EXAM: 06/11/2022 COMPARISON: 05/31/2022 HISTORY: Chest pain TECHNIQUE: Single view FINDINGS: Heart size is normal. There is some pulmonary interstitial edema. There is left axillary pa cemaker. There is no pleural effusion. There are no hilar masses. Mediastinum is normal. IMPRESSION: There is pulmonary interstitial edema which is increased compared to the old exam and cou ld be acute pneumonia or heart failure.
[2022-06-12] MEDS ORDERED: IV FLUID CONTINUATION 1,000 ML IV ONE (00:06)
[2022-06-12] MEDS ORDERED: NALOXONE 0.4 MG/ML 1 ML VIAL IV PRN (00:07)
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
[2022-06-12] MEDS ORDERED: MIDAZOLAM 2 MG/2 ML VIAL IV ONE (00:10)
[2022-06-12] MEDS ORDERED: LIDOCAINE 1% INJ 10MG/ML (5 ML VIAL-PF) SQ ONE (00:12)
[2022-06-12] MEDS ORDERED: HEPARIN SODIUM 1,000 UN/ML (10ML VL) ONE (00:13)
[2022-06-12] MEDS ORDERED: VERAPAMIL SYRINGE (5 MG/10 ML) INTRAARTER ONE (00:14)
[2022-06-12] MEDS: PHENYLEPHRINE-0.9% NACL SYG 1,000 MCG/10 ML SYRINGE IV ONE ×2 (00:22→02:55)
[2022-06-12] MEDS: HEPARIN SODIUM 1,000 UN/ML (10ML VL) IV ONE ×3 (00:37→01:37)
[2022-06-12] MEDS ORDERED: fentaNYL (PF) 50 MCG/ML 2 ML AMP ONE (00:52)
[2022-06-12] MEDS ORDERED: fentaNYL (PF) 50 MCG/ML 2 ML AMP IV ONE (00:53)
[2022-06-12] MEDS ORDERED: SODIUM CHLORIDE 0.9% 1,000 ML IV ONE (00:55)
[2022-06-12] MEDS ORDERED: TICAGRELOR 90 MG TAB ONE (00:56)
[2022-06-12] MEDS ORDERED: TICAGRELOR 90 MG TAB PO ONE (00:59)
[2022-06-12] MEDS ORDERED: IOPAMIDOL-370 125ML BTL INJ ONE (01:10)
[2022-06-12] MEDS ORDERED: ONDANSETRON 4 MG/2 ML VIAL ONE (01:52)
[2022-06-12] MEDS ORDERED: ONDANSETRON 4 MG/2 ML VIAL IVP ONE (01:55)
[2022-06-12] MEDS ORDERED: EPINEPHrine 10 ML SYRINGE (0.1 MG/ML) ONE (02:00)
[2022-06-12] MEDS ORDERED: SODIUM BICARB 8.4% 50 ML SYR (1 MEQ/ML) ONE (02:00)
[2022-06-12] MEDS ORDERED: propofoL 100 ML IV ONE (02:17)
[2022-06-12 02:33] LABS: Glucose,Whole Blood >600 mg/dL (70-110)
[2022-06-12] MEDS ORDERED: NOREPINEPHRINE 4 MG in SODIUM CHLORIDE 0.9% 250 ML IV ONE (02:40)
[2022-06-12] MEDS ORDERED: IOPAMIDOL-370 100ML BTL INJ ONE (03:23)
--- NOTE | 2022-06-12 03:28 | P.PRCINT ---
Percutaneous Coronary Int. - Percutaneous Coronary Intervention Percutaneous Coronary Intervention: PROCEDURES PERFORMED: Left coronary angiography, PTCA proximal and mid LAD, Impella CP placement, CSI rotational atherectomy, cardiac arrest INDICATION: STEMI HISTORY: Patient is a 77-year-old male with history of severe aortic stenosis, cardiomyopathy EF 20%, recent pacemaker and coronary artery disease who presented with chest pain and was found to have ST elevations and therefore recommended to undergo heart catheterization. PROCEDURE: After the risks, benefits and alternatives of the above mentioned procedure explained in detail with the patient, informed consent was obtained. Patient was taken to the catheterization lab and prepped and draped in usual fashion. 1% lidocaine was used to anesthetize the right radial artery. A 6- Somali sheath was placed in the right radial artery using modified Seldinger technique. A 6-Somali CLS 3.5 guide was used to engage the left main. Heparin was given for ACT greater than 250. With first injections patient's blood pressure dropped into the 60s systolic and therefore decision was made to place an Impella. A 6-Somali sheath was placed in the right femoral artery using modified Seldinger technique and ultrasound guidance. A Perclose was placed. The stiff wire was placed and over the stiff wire the sheath was upgraded to a 14-Somali Impella sheath. Next the stenotic valve was able be crossed with a AL-1. Next a 0.018 wire was advanced in the left ventricle and over the 0.018 wire the Impella was placed and then turned on. Patient did have known aortic stenosis and risk of further occluding the aortic valve versus improvement in blood pressure and perfusion were weighed and felt better to have the Impella for support. A 0.014 BMW wire was initially advanced into the septal and the course of the LAD was not obvious on initial presentation. Next a 2.5 x 12 mm balloon was used to predilate the more proximal lesion. Angiogram did not show course of the LAD and a number of attempts were made and eventually using a 0.014 whisper wire the mid to distal LAD was able to be wired. Unable to pass any balloon including a 1.0 x 8mm balloon with the assistance of the guideliner. This mainly appeared related to calcified tortuous mid LAD lesion. Therefore A Turnpike microcatheter was advanced and able to be passed into the mid to distal LAD. Next a Viper wire was advanced and then see aside rotational atherectomy was performed for 5 runs. This allowed for advancement of the CSI into the mid to distal LAD. Next we were able to advance a 2.0 x 6 mm and then a 2.5 x 8 mm noncompliant balloon. Throughout the case patient had frequently lost pulsatility with Impella being at P6 with blood pressures in the 40s to 50s. Patient however became unresponsive with drop in blood pressure and therefore CODE BLUE was called. CPR was performed, see separate report. After number of attempts at revival there is no return of spontaneous circulation and patient was pronounced . Conscious Sedation: Patient was monitored under the direct supervision of vision of myself for conscious sedation using Versed and fentanyl for a total duration of [] minutes HEMODYNAMICS: Aortic: 76/53 LV: 115/32, LVEDP 36mmHg, peak to peak gradient of approximately 30mmHg (likely underestimated due to low flow low gradient) SELECTIVE CORONARY ARTERIOGRAPHY: LEFT MAIN: The left main is a large caliber vessel which bifurcates into the LAD and circumflex. There is no significant stenosis. LEFT ANTERIOR DESCENDING CORONARY ARTERY: LAD is a large caliber vessel which wraps around to the apex. There is 100% stenosis of the proximal LAD with t hrombus noted and after ballooning was also noted to have a mid LAD calcified 95% stenosis and diffuse disease of the mid to distal LAD. There are left to right collaterals. LEFT CIRCUMFLEX CORONARY ARTERY: Left circumflex is a moderate caliber vessel. There is a mid OM1 tandem 80% stenoses. RIGHT CORONARY ARTERY: The right coronary artery was not imaged however an RCA stent is visualized with left to right collaterals and assumed to be 100% stenosis of RCA. FINAL IMPRESSION: 1. CAD as described above including 100% proximal LAD, 80% OM1, presumed 100% RCA stenosis with left to right collaterals 2. Cardiogenic shock 3. Severe aortic stenosis PLAN: Patient and son Cory updated.
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
--- NOTE | 2022-06-12 16:49 | P.DS ---
Providers Date of admission: 06/12/22 00:07 Expected date of discharge: 06/12/22 (Patient ) Attending physician: Zia Looney Consults: 06/12/22 00:07 Consult Physician Routine Consulting Provider: [facility] Consult Reason/Comments: stemi Do you want consulting provider notified?: Already Contacted Primary care physician: [facility] Course: Chief Complaint: Chest pain This patient was admitted last night. 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 Subsequently had a cardiac arrest. Patient . Patient was not seen by me. For additional details see the notes by cardiology and ER notes. Cause of : Coronary artery disease Plan - Discharge Summary New Discharge Prescriptions: No Action Nicotine Polacrilex [Nicotine Gum] 4 mg PO DAILY PRN PRN Reason: cravings Multivitamins, Thera [Multivitamin (formulary)] 1 tab PO DAILY Cholecalciferol [Vitamin D3 (25 Mcg = 1000 Iu)] 50 mcg PO DAILY Aspirin 81 mg PO DAILY Ipratropium/Albuter 20-100Mcg [Combivent Respimat 20-100Mcg Inhaler] 1 puff INHALATION RT-QID Tamsulosin [Flomax] 0.4 mg PO PC-SUPPER #30 cap Nicotine 14Mg/24Hr Patch [Habitrol] 1 patch TOPICAL DAILY Areds2 1 cap PO BID Folic Acid 1 mg PO DAILY Dextrose Chew [Glucose Chew Tab] 16 gm PO DAILY PRN PRN Reason: low blood sugar Empagliflozin [Jardiance] 25 mg PO DAILY Ascorbic Acid [Vitamin C with Cielo Hips] 500 mg PO DAILY Ammonium Lactate Lotion [Lac-Hydrin 12% Lotion] 1 applic TOPICAL DAILY Simvastatin [Zocor] 10 mg PO DAILY metFORMIN HCL 1,000 mg PO PC-BID #0 Discharge Medication List Ammonium Lactate Lotion [Lac-Hydrin 12% Lotion] 1 applic TOPICAL DAILY 05/29/22 [History] Areds2 1 cap PO BID 05/29/22 [History] Ascorbic Acid [Vitamin C with Cielo Hips] 500 mg PO DAILY 05/29/22 [History] Aspirin 81 mg PO DAILY 05/29/22 [History] Cholecalciferol [Vitamin D3 (25 Mcg = 1000 Iu)] 50 mcg PO DAILY 05/29/22 [History] Dextrose Chew [Glucose Chew Tab] 16 gm PO DAILY PRN 05/29/22 [History] Empagliflozin [Jardiance] 25 mg PO DAILY 05/29/22 [History] Folic Acid 1 mg PO DAILY 05/29/22 [History] Ipratropium/Albuter 20-100Mcg [Combivent Respimat 20-100Mcg Inhaler] 1 puff INHALATION RT-QID 05/29/22 [History] Multivitamins, Thera [Multivitamin (formulary)] 1 tab PO DAILY 05/29/22 [H istory] Nicotine 14Mg/24Hr Patch [Habitrol] 1 patch TOPICAL DAILY 05/29/22 [History] Nicotine Polacrilex [Nicotine Gum] 4 mg PO DAILY PRN 05/29/22 [History] Simvastatin [Zocor] 10 mg PO DAILY 05/29/22 [History] Tamsulosin [Flomax] 0.4 mg PO PC-SUPPER #30 cap 06/01/22 [Rx] metFORMIN HCL 1,000 mg PO PC-BID #0 06/01/22 [Rx] Follow up Appointment(s)/Referral(s): Sae Almaguer MD [Primary Care Provider] - 1-2 days Discharge Disposition: - Preliminary Cause of Preliminary Cause of : Coronary artery disease
== END 2022-06-12 05:00 | disposition expired | DRG 215 ==
LOC: EC 23:25 → 2SICU 06-12 00:07 → 1SOBS 06-12 03:53
PROVIDERS: ADMIT Hospitalist; ATTEND Hospitalist
PROC: 02HA3RZ Insertion of Short-term External Heart Assist System into Heart, Percutaneous Approach (ICD-10-PCS; principal; 2022-06-12)
PROC: 5A0221D Assistance with Cardiac Output using Impeller Pump, Continuous (ICD-10-PCS; 2022-06-12)
PROC: 02C03Z7 Extirpation of Matter from Coronary Artery, One Artery, Orbital Atherectomy Technique, Percutaneous Approach (ICD-10-PCS; 2022-06-12)
PROC: B2111ZZ Fluoroscopy of Multiple Coronary Arteries using Low Osmolar Contrast (ICD-10-PCS; 2022-06-12)
PROC: 3E033XZ Introduction of Vasopressor into Peripheral Vein, Percutaneous Approach (ICD-10-PCS; 2022-06-12)
PROC: 5A12012 Performance of Cardiac Output, Single, Manual (ICD-10-PCS; 2022-06-12)
DX: I21.09 ST elevation (STEMI) myocardial infarction involving other coronary artery of anterior wall (principal); I42.9 Cardiomyopathy, unspecified; I46.9 Cardiac arrest, cause unspecified; F17.210 Nicotine dependence, cigarettes, uncomplicated; D53.9 Nutritional anemia, unspecified; E11.65 Type 2 diabetes mellitus with hyperglycemia; I35.0 Nonrheumatic aortic (valve) stenosis; J44.9 Chronic obstructive pulmonary disease, unspecified; I25.110 Atherosclerotic heart disease of native coronary artery with unstable angina pectoris; R00.0 Tachycardia, unspecified; I48.91 Unspecified atrial fibrillation; I44.30 Unspecified atrioventricular block; G47.33 Obstructive sleep apnea (adult) (pediatric); M19.90 Unspecified osteoarthritis, unspecified site; Z79.82 Long term (current) use of aspirin; Z79.84 Long term (current) use of oral hypoglycemic drugs; Z79.51 Long term (current) use of inhaled steroids; Z79.899 Other long term (current) drug therapy; Z88.5 Allergy status to narcotic agent; Z95.5 Presence of coronary angioplasty implant and graft; Z95.0 Presence of cardiac pacemaker
CPT/HCPCS: 33990; 36415; 71045; 80053; 84484; 85025; 85610; 85730; 92924; 92950; 93005; 93458; 94002; 96374; 99285